=== PATIENT | male | born 1985 | race Caucasian/White ===

== ENCOUNTER 2017-04-06 00:27 | Emergency (ER) | payer OTHER ==
[2017-04-06 02:20] VITALS: BP 135/95
== END 2017-04-06 02:20 | disposition home or self-care (01) ==
LOC: ED 00:27
DX: L03.116 Cellulitis of left lower limb (principal); L03.115 Cellulitis of right lower limb; R03.0 Elevated blood-pressure reading, without diagnosis of hypertension
CPT/HCPCS: 82962; J1885; J7030

== ENCOUNTER 2017-08-16 20:20 | Emergency (ER) | payer OTHER ==
[2017-08-17 00:27] VITALS: BP 150/103
== END 2017-08-17 00:27 | disposition home or self-care (01) ==
LOC: ED 20:20
DX: K21.9 Gastro-esophageal reflux disease without esophagitis (principal)

== ENCOUNTER 2017-08-19 03:05 | Emergency (ER) | payer OTHER ==
[2017-08-19 03:49] LABS: microscopic required? NO
[2017-08-19 04:07] LABS: UA SPECIFIC GRAVITY 1.025 (1.005-1.035); urine erythrocyte NEGATIVE (NEGATIVE)
[2017-08-19 05:46] LABS: AMPHETAMINE QUAL UR POSITIVE (NEG <=1000)
[2017-08-19 06:00] VITALS: BP 117/71
== END 2017-08-19 06:00 | disposition home or self-care (01) ==
LOC: ED 03:05
PROVIDERS: Emergency Medicine
DX: Z20.2 Contact with and (suspected) exposure to infections with a predominantly sexual mode of transmission (principal); E86.0 Dehydration; K21.9 Gastro-esophageal reflux disease without esophagitis
CPT/HCPCS: 87491; 87591; J7030

== ENCOUNTER 2017-10-06 14:42 | Emergency (ER) | payer OTHER ==
[~2017-10-06] VITALS: Ht 162.6 cm; Wt 87.5 kg
[2017-10-06 15:40] LABS: BASOPHIL % 0.4 % (0-2); PLATELET COUNT 253 x10^3mcL (130-400); RED CELL DISTRIBUTION WIDTH 12.6 % (11.5-14.5)
[2017-10-06 15:48] LABS: CALCIUM 8.6 mg/dL (8.5-10.1); CHLORIDE SERUM 102 mmol/L (98-107); CREATININE SERUM 1.1 mg/dL (0.7-1.3); GFR1 > 60 mL/min; GLUCOSE SERUM 96 mg/dL (74-106); SODIUM SERUM 139 mmol/L (136-145)
[2017-10-06 15:53] LABS: ALBUMIN 3.5 g/dL (3.4-5.0); ALKALINE PHOSPHATASE 100 U/L (46-116); ALT/SGPT 30 U/L (16-63); AST/SGOT 15 U/L (15-37); BILIRUBIN TOTAL 1.2 mg/dL (0.20-1.00); LIPASE 82 IU/L (73-393); TOTAL PROTEIN, SERUM 7.8 g/dL (6.4-8.2)
[2017-10-06 16:31] VITALS: BP 126/83
[2017-10-07] MEDS ORDERED: NORCO1 TA2 PO (10:06)
== END 2017-10-06 16:32 | disposition home or self-care (01) ==
LOC: ED 14:42
PROVIDERS: Emergency Medicine
DX: K80.50 Calculus of bile duct without cholangitis or cholecystitis without obstruction (principal); Z88.8 Allergy status to other drugs, medicaments and biological substances
CPT/HCPCS: J1885; J2550; J7030; Q0092

== ENCOUNTER 2017-10-07 07:30 | Inpatient (IN) | payer OTHER ==
[~2017-10-07] VITALS: Ht 170.2 cm; Wt 91.2 kg
[2017-10-07 08:40] LABS: BASOPHIL % 0.1 % (0-2); PLATELET COUNT 258 x10^3mcL (130-400); RED CELL DISTRIBUTION WIDTH 12.8 % (11.5-14.5)
[2017-10-07 08:49] LABS: CARBON DIOXIDE 32.9 mmol/L (21-32); CHLORIDE SERUM 102 mmol/L (98-107); CREATININE SERUM 1.2 mg/dL (0.7-1.3); GFR1 > 60 mL/min; GLUCOSE SERUM 114 mg/dL (74-106); SODIUM SERUM 139 mmol/L (136-145)
[2017-10-07 08:53] LABS: ALBUMIN 3.6 g/dL (3.4-5.0); ALKALINE PHOSPHATASE 92 U/L (46-116); ALT/SGPT 32 U/L (16-63); AST/SGOT 29 U/L (15-37); BILIRUBIN TOTAL 1.09 mg/dL (0.20-1.00); LIPASE 72 IU/L (73-393); TOTAL PROTEIN, SERUM 7.9 g/dL (6.4-8.2)
[2017-10-07 08:55] LABS: AMYLASE 20 U/L (25-115)
[2017-10-07] MEDS ORDERED: NORCO1 TA2 PO (10:06)
[2017-10-07 10:18] LABS: CHOLESTEROL/HDL RATIO 2.7; MAGNESIUM 2.2 mg/dL (1.8-2.4)
[2017-10-07 10:38] LABS: FREE T4 1.06 ng/dL (0.76-1.46); FREE THYROXINE INDEX 2.7 ug/dL (1.4-4.5); T4(THYROXINE) 8.2 ug/dL (4.7-13.3)
[2017-10-07 10:40] LABS: T3 TOTAL 1.26 ng/mL
[2017-10-07 11:49] VITALS: BP 144/102
[2017-10-07 13:05] VITALS: BP 121/74
[2017-10-07 13:19] VITALS: BP 128/93
[2017-10-07 15:27] LABS: microscopic required? NO
[2017-10-07 15:33] LABS: UA SPECIFIC GRAVITY >=1.030 (1.005-1.035); urine erythrocyte NEGATIVE (NEGATIVE)
[2017-10-07 15:42] LABS: AMPHETAMINE QUAL UR POSITIVE (NEG <=1000)
[2017-10-07 17:41] VITALS: BP 129/91
== END 2017-10-07 18:50 | disposition left against medical advice (07) | DRG 247 ==
LOC: ED 07:30 → DU 09:29
PROVIDERS: Emergency Medicine; ADMIT Family Medicine
DX: K56.609 Unspecified intestinal obstruction, unspecified as to partial versus complete obstruction (principal); K21.9 Gastro-esophageal reflux disease without esophagitis; Z88.3 Allergy status to other anti-infective agents; K80.20 Calculus of gallbladder without cholecystitis without obstruction; K56.7 Ileus, unspecified
CPT/HCPCS: 83880; 84439; J1885; J2250; J2405; J3010; J3490; J7030; Q0092

== ENCOUNTER 2017-10-07 20:59 | Inpatient (IN) | payer OTHER ==
[~2017-10-07] VITALS: Ht 170.2 cm; Wt 90.5 kg
[~2017-10-07 20:59] MED LIST: NORCO1 TA2 PO
[2017-10-07 23:11] VITALS: BP 146/108
[2017-10-07 23:14] LABS: MAGNESIUM 1.8 mg/dL (1.8-2.4); PHOSPHOROUS 3.3 mg/dL (2.5-4.9)
[2017-10-07 23:18] LABS: CHOLESTEROL/HDL RATIO 2.8
[2017-10-07 23:22] LABS: FREE T4 1.06 ng/dL (0.76-1.46); FREE THYROXINE INDEX 2.1 ug/dL (1.4-4.5); T4(THYROXINE) 6.2 ug/dL (4.7-13.3)
[2017-10-07 23:33] LABS: T3 TOTAL 1.05 ng/mL
[2017-10-07 23:37] LABS: UA SPECIFIC GRAVITY 1.025 (1.005-1.035); microscopic required? YES; urine erythrocyte NEGATIVE (NEGATIVE)
[2017-10-08 00:07] LABS: AMPHETAMINE QUAL UR POSITIVE (NEG <=1000)
[2017-10-08 05:36] VITALS: BP 134/89
[2017-10-08 06:10] LABS: BASOPHIL % 0.4 % (0-2); PLATELET COUNT 229 x10^3mcL (130-400); RED CELL DISTRIBUTION WIDTH 12.4 % (11.5-14.5)
[2017-10-08 06:19] LABS: CALCIUM 7.9 mg/dL (8.5-10.1); CARBON DIOXIDE 28.3 mmol/L (21-32); CHLORIDE SERUM 105 mmol/L (98-107); GFR1 > 60 mL/min; GLUCOSE SERUM 97 mg/dL (74-106); POTASSIUM SERUM 3.9 mmol/L (3.5-5.1); SODIUM SERUM 142 mmol/L (136-145)
[2017-10-08 08:54] VITALS: BP 126/90
[2017-10-08 17:19] VITALS: BP 127/91
[2017-10-08 21:04] VITALS: BP 116/76
[2017-10-09 05:43] VITALS: BP 126/89
[2017-10-09 07:21] LABS: BASOPHIL % 0.3 % (0-2); CALCIUM 8.1 mg/dL (8.5-10.1); CHLORIDE SERUM 104 mmol/L (98-107); CREATININE SERUM 0.9 mg/dL (0.7-1.3); GFR1 > 60 mL/min; GLUCOSE SERUM 82 mg/dL (74-106); PLATELET COUNT 251 x10^3mcL (130-400); POTASSIUM SERUM 3.7 mmol/L (3.5-5.1); RED CELL DISTRIBUTION WIDTH 12.3 % (11.5-14.5); SODIUM SERUM 138 mmol/L (136-145)
[2017-10-09 09:07] VITALS: BP 127/84
[2017-10-09 16:58] VITALS: BP 129/85
[2017-10-09 21:11] VITALS: BP 140/95
[2017-10-10 04:59] VITALS: BP 117/85
[2017-10-10 07:00] LABS: BASOPHIL % 0.4 % (0-2); PLATELET COUNT 274 x10^3mcL (130-400); RED CELL DISTRIBUTION WIDTH 12.2 % (11.5-14.5)
[2017-10-10 07:02] LABS: CALCIUM 8.1 mg/dL (8.5-10.1); CARBON DIOXIDE 27.4 mmol/L (21-32); CHLORIDE SERUM 104 mmol/L (98-107); CREATININE SERUM 0.8 mg/dL (0.7-1.3); GFR1 > 60 mL/min; GLUCOSE SERUM 90 mg/dL (74-106); MAGNESIUM 2.1 mg/dL (1.8-2.4); POTASSIUM SERUM 3.8 mmol/L (3.5-5.1); SODIUM SERUM 139 mmol/L (136-145)
[2017-10-10 10:03] VITALS: BP 149/96
[2017-10-10 17:30] VITALS: BP 134/92
[2017-10-10 21:25] VITALS: BP 155/92
[2017-10-11 06:05] VITALS: BP 120/77
[2017-10-11 06:46] LABS: BASOPHIL % 0.4 % (0-2); PLATELET COUNT 324 x10^3mcL (130-400); RED CELL DISTRIBUTION WIDTH 12.1 % (11.5-14.5)
[2017-10-11 07:02] LABS: CALCIUM 8.1 mg/dL (8.5-10.1); CHLORIDE SERUM 104 mmol/L (98-107); CREATININE SERUM 0.7 mg/dL (0.7-1.3); GFR1 > 60 mL/min; GLUCOSE SERUM 76 mg/dL (74-106); POTASSIUM SERUM 3.7 mmol/L (3.5-5.1); SODIUM SERUM 137 mmol/L (136-145)
[2017-10-11 09:14] VITALS: BP 130/91
[2017-10-11 16:19] VITALS: BP 149/96
[2017-10-11 21:19] VITALS: BP 135/91
[2017-10-12 05:39] VITALS: BP 129/75
[2017-10-12 09:30] VITALS: BP 145/89
[2017-10-12] MEDS ORDERED: COL100 PO (09:37)
[2017-10-12 12:15] VITALS: BP 145/89
== END 2017-10-12 12:57 | disposition home or self-care (01) | DRG 247 ==
LOC: ED 20:59 → DU 21:53 → MU 21:53 → DU 23:03 → MU 10-08 17:42
PROVIDERS: ADMIT Family Medicine
DX: K56.609 Unspecified intestinal obstruction, unspecified as to partial versus complete obstruction (principal); N17.0 Acute kidney failure with tubular necrosis; K56.7 Ileus, unspecified; F15.10 Other stimulant abuse, uncomplicated; K80.20 Calculus of gallbladder without cholecystitis without obstruction; R80.9 Proteinuria, unspecified; Z68.31 Body mass index [BMI] 31.0-31.9, adult; F17.210 Nicotine dependence, cigarettes, uncomplicated
CPT/HCPCS: 83880; 84439; J1885; J2270; J2405; J2765; J7030; Q0092; Q9967

== ENCOUNTER 2017-11-18 22:50 | Emergency (ER) | payer OTHER ==
[~2017-11-18] VITALS: Ht 160 cm; Wt 83.9 kg
[~2017-11-18 22:50] MED LIST changes: +COL100 PO
[2017-11-18 23:03] VITALS: Ht 160 cm; Wt 83.9 kg
[2017-11-19 00:45] VITALS: BP 165/98
== END 2017-11-19 00:45 | disposition home or self-care (01) ==
LOC: ED 22:50
DX: J06.9 Acute upper respiratory infection, unspecified (principal); Z91.041 Radiographic dye allergy status

== ENCOUNTER 2018-07-06 15:33 | Emergency (ER) | payer SELFPAY ==
[~2018-07-06] VITALS: Ht 170.2 cm; Wt 86.6 kg
[2018-07-06 15:51] VITALS: Ht 170.2 cm; Wt 86.6 kg
[2018-07-06 19:47] VITALS: BP 133/99
== END 2018-07-06 16:13 | disposition home or self-care (01) ==
LOC: ED 15:33
DX: M54.6 Pain in thoracic spine (principal); Z91.041 Radiographic dye allergy status
CPT/HCPCS: 72072; Q0092; Q0162

== ENCOUNTER 2019-04-03 18:20 | Emergency (ER) | payer OTHER ==
[2019-04-03 18:45] VITALS: Ht 170.2 cm
[2019-04-03 21:19] VITALS: BP 149/101
== END 2019-04-03 21:19 | disposition home or self-care (01) ==
LOC: ED 18:20
DX: Z11.3 Encounter for screening for infections with a predominantly sexual mode of transmission (principal); K21.9 Gastro-esophageal reflux disease without esophagitis; F17.210 Nicotine dependence, cigarettes, uncomplicated; Z91.041 Radiographic dye allergy status
CPT/HCPCS: 87491; 87591

== ENCOUNTER 2019-05-13 04:47 | Inpatient (IN) | payer OTHER ==
[~2019-05-13] VITALS: Ht 170.2 cm; Wt 91.2 kg
[2019-05-13 04:50] VITALS: Ht 170.2 cm; Wt 91.2 kg
--- NOTE | 2019-05-13 05:00 | NUR ---
EKG IN PROGRESS
--- NOTE | 2019-05-13 05:00 | NUR ---
PT C/O SHARP NONRADIATING CHEST PAIN X1 HR WITH +DIZZINESS AND SOB. PT STS 5 EPISODES OF VOMITING. PT STS HE WAS SLEEPING AT THE TIME AND THE PAIN WOKE HIM UP PT STS "NEVER FELT THIS BEFORE" -LOC PT STS "I HAVE BEEN STRESSED LATELY ABOUT EVERYTHING" PT STS HX ANXIETY AND EPIGASTRIC PAIN PT AAOX4 TACYPNEIC, RESPS E/U SPEAKING FULL CLEAR SENTENCES PT APPEARS ANXIOUS +N -DIZZINESS AT THIS TIME PT STS 10/10 PAIN PT GOWNED PLACED ON FULL CM NSR
--- NOTE | 2019-05-13 05:01 | NUR ---
PT DENIES ANY RECENT DRUG OR ETOH USE
--- NOTE | 2019-05-13 05:13 | NUR ---
MOM AT BEDSIDE, PT AWAITING MSE
--- NOTE | 2019-05-13 05:27 | NUR ---
MD SPENCE AT BEDSIDE
--- NOTE | 2019-05-13 05:27 | NUR ---
PT ADMITS TO USING METH X1 DAY AGO
--- NOTE | 2019-05-13 05:34 | NUR ---
PT GIVEN URINAL AT BEDSIDE AND INSTRUCTED TO PROVIDE URINE SPECIMEN CORTEZ
--- NOTE | 2019-05-13 05:52 | NUR ---
PT REMINDED TO PROVIDE URINE SPECIMEN PER MD SPENCE VERBAL ORDERS DO NOT ADMIN ATIVAN UNTIL URINE SPECIMEN PROVIDED. PT MADE AWARE. MOM AT BEDSIDE
--- NOTE | 2019-05-13 05:59 | NUR ---
PT APPEARS ANXIOUS PT REMINDED TO PROVIDE URINE SPECIMEN RESPS E/U MOM AT BEDSIDE CALL LIGHT WITHIN REACH
--- NOTE | 2019-05-13 06:12 | NUR ---
MD FAIR AT BEDSIDE DISCUSSING PLAN OF CARE
--- NOTE | 2019-05-13 06:12 | NUR ---
MD FAIR MADE AWARE OF PT BP
[2019-05-13 06:43] LABS: BASOPHIL % 0.3 % (0-2); PLATELET COUNT 288 x10^3mcL (130-400)
--- NOTE | 2019-05-13 06:44 | NUR ---
PT C/O 10/10 CHEST PAIN, NSR ON CM, SKIN PINK DRY AND WARM, RESPS E/U PT IN NAD AT THIS TIME, MD FAIR MADE AWARE OF PT PAIN LEVEL AND BP MOM AT BEDSIDE
--- NOTE | 2019-05-13 06:54 | NUR ---
PT STS "I SEE DOUBLE" MD FAIR MADE AWARE PER MD FAIR VERBAL ORDERS OKAY TO GIVEN ATIVAN NOW
--- NOTE | 2019-05-13 07:10 | NUR ---
REPORT GIVEN TO KEE VALADEZ RN WHO IS RESUMING CARE OF PT AT THIS TIME
[2019-05-13 07:13] LABS: ALBUMIN 3.9 g/dL (3.4-5.0); ALKALINE PHOSPHATASE 107 U/L (46-116); ALT/SGPT 24 U/L (16-63); AST/SGOT 10 U/L (15-37); CALCIUM 9.4 mg/dL (8.5-10.1); CARBON DIOXIDE 25.1 mmol/L (21-32); CHLORIDE SERUM 104 mmol/L (98-107); CREATININE SERUM 1.3 mg/dL (0.7-1.3); GFR1 > 60 mL/min; GLUCOSE SERUM 127 mg/dL (74-106); POTASSIUM SERUM 3.5 mmol/L (3.5-5.1); SODIUM SERUM 140 mmol/L (136-145); TOTAL PROTEIN, SERUM 7.6 g/dL (6.4-8.2)
--- NOTE | 2019-05-13 07:34 | NUR ---
RECEIVED SLEEPING,SLEEPY POST ATIVAN,CHEST PAIN IMPROVING BETTER THAN BEFORE, CORPORATE TRAVEL AGENT IN ST NO ECTOPY,RESP. EASY BREATH SOUNDS CLEAR,NSS WIDE OPEN IN PROGRESS,,SKIN WARM AND DRY TO TOUCH, BP HIGH 189/120,ER MD AWARE
[2019-05-13 09:39] LABS: MAGNESIUM 1.8 mg/dL (1.8-2.4); PHOSPHOROUS 3.3 mg/dL (2.5-4.9)
[2019-05-13 09:44] LABS: T3 TOTAL 1.02 ng/mL
--- NOTE | 2019-05-13 09:50 | NUR ---
SLEEPING AWAKABLE FEELS BETTER, X RAY SERVICE ENGINEER SR, FOR ADMISION
[2019-05-13 10:20] VITALS: BP 140/92
--- NOTE | 2019-05-13 10:35 | NUR ---
PT ENDORSE TO ME THIS MORNING FROM [facility] VIA [employer]. BREATHIHNG EVEN AND UNLABORED ON RA, NO ACUTE RESP DISTRESS OR SOB NOTED. AA/O X4 A BIT SLEEPY/ MOTHER BY HIS SIDE. TELE 17 SR NOTED, ARISTIDES ANY CP OR PRESSURE AT THIS TIME. VOIDS FREEY, AMB. SKIN INTACT. IV TO THE RAC INTACT AND PATENT/ NS INFUSING AT 100ML/HR, NO REDNESS OR SWELLING NOTED. VS: 140/92, HR 85, TEMP 98.1, 98 RA, RESP 16, DENIES ANY DISCOMFORT OR CP AT THIS TIME. WILL CONTINUE TO MONITOR.
[2019-05-13 11:35] LABS: FREE T4 0.78 ng/dL (0.76-1.46); FREE THYROXINE INDEX 1.9 ug/dL (1.4-4.5); T4(THYROXINE) 5.5 ug/dL (4.7-13.3)
--- NOTE | 2019-05-13 14:25 | NUR ---
PT UP AMB THE HALLS X4, DENIES ANY CP OR PRESSURE. WILL CONTINUE TO MONITOR.
[2019-05-13 17:20] VITALS: BP 152/107
--- NOTE | 2019-05-13 17:45 | NUR ---
PT TOLERATED 100% OF HIS DINNER/ NO N/V NOTED, DENIES ANY CP OR PRESSURE, FAMILY AT BEDSIDE. WILL CONTINUE TO MONITOR.
--- NOTE | 2019-05-13 18:28 | NUR ---
NO ACUTE CHANGES AT THIS TIME, NO ACUTE RESP DISTRESS OR SOB NOTED. DENIES ANY CP OR PRESSURE. IV TO THE RAC INTACT AND PATENT INFUSING AT 100ML/HR, NO REDNESS OR SWELLING NOTED. WILL ENDORSE TO INCOMING RN.
[2019-05-13 18:35] LABS: microscopic required? NO
[2019-05-13 18:39] LABS: UA SPECIFIC GRAVITY 1.015 (1.005-1.035); urine erythrocyte NEGATIVE (NEGATIVE)
[2019-05-13 18:48] LABS: AMPHETAMINE QUAL UR POSITIVE (See below)
--- NOTE | 2019-05-13 19:29 | NUR ---
PT IS CALM AND COOPERATIVE WITH NURSING CARE. PT DENIES LIVINGSTON OR DIZZINESS AT THIS TIME. PT IS AWAKE AND ORIENTED X4. PT ON TELE #17 SHOWING NSR ON THE MONITOR. PT DENIES CP OR PRESSURE AT THIS TIME. PT HAS PALPABLE PULSES BILAT ALL EXTREMITIES. NO SIGNS OF EDEMA. PT HAS CLEAR LUNG SOUNDS. PT DENIES SOB. RESPIRATIONS EVEN AND UNLABORED ON ROOM AIR. PT HAS ACTIVE BOWEL SOUNDS. PT ABD SOFT, AND NONTENDER TO TOUCH. PT DENIES ABD PAIN AND N/V AT THIS TIME. PT VOIDS FREELY ON OWN. PT AMBULATORY ON OWN. PT SKIN CDI. IV FLUIDS NS RUNNING AT 100 ML/HR TO RAC. PT DENIES PAIN OR DISCOMFORT AT THIS TIME. NO SIGNS OF DISTRESS. WILL ENDORSE TO DAY NURSE.
[2019-05-13 20:44] VITALS: BP 155/104
--- NOTE | 2019-05-13 20:51 | NUR ---
PT BP 155/104 HR 93, DR. CONROY NOTIFIED AT THIS TIME.
[2019-05-14 02:00] VITALS: BP 154/105
--- NOTE | 2019-05-14 02:02 | NUR ---
PT REMAINS IN BED AT THISTIME RESTING IN BED WITH EYES CLOSED. NO SIGNS OF DISTRESS. WILL CONTINUE TO MONITOR.
--- NOTE | 2019-05-14 04:00 | NUR ---
PT REMAINS IN BED AT THIS TIME RESTING WITH EYES CLOSED. NO SIGNS OF DISTRESS. WILL CONTINUE TO MONITOR.
--- NOTE | 2019-05-14 05:15 | NUR ---
PT C/O CHEST PAIN 07/16. PT PLACED ON 2L O2 NC. PT REMAINS CALM AND COOPERATIVE. PT REMAINS LYING IN BED AT THIS TIME. WILL CONTINUE TO MONITOR.
[2019-05-14 05:27] VITALS: BP 128/97
--- NOTE | 2019-05-14 05:45 | NUR ---
PT STILL C/O 07/16 PAIN. PRN MORPHINE 2 MG GIVEN ORDERED IVP. PT STILL REMAINS IN BED CALM. NO SIGNS OF IMMEDIATE DISTRESS. WILL CONTINUE TO MONITOR.
--- NOTE | 2019-05-14 06:13 | NUR ---
PT STATES PAIN IS "BETTER" AND TOLERABLE AT THIS TIME. NO SIGNS OF DISTRESS. WILL CONTINUE TO MONITOR.
--- NOTE | 2019-05-14 06:32 | NUR ---
PT IS CALM AND COOPERATIVE WITH NURSING CARE. PT SLEPT THROUGHOUT THE EVENING. ALL PT NEEDS MET. NO SIGNS OF DISTRESS. WILL ENDORSE TO DAY NURSE.
[2019-05-14 06:36] LABS: BASOPHIL % 0.3 % (0-2); PLATELET COUNT 257 x10^3mcL (130-400)
[2019-05-14 06:58] LABS: CALCIUM 8.5 mg/dL (8.5-10.1); CARBON DIOXIDE 29.6 mmol/L (21-32); CHLORIDE SERUM 104 mmol/L (98-107); GFR1 > 60 mL/min; GLUCOSE SERUM 115 mg/dL (74-106); PHOSPHOROUS 3.5 mg/dL (2.5-4.9); SODIUM SERUM 140 mmol/L (136-145)
--- NOTE | 2019-05-14 07:19 | NUR ---
PT LAYING IN BED RESTING. BREATHING EVEN AND UNLABORED ON RA, NO ACUTE RESP DISTRESS OR SOB NOTED. AA/O X4. TELE 17 SR NOTED, HR 84, DENIES ANY CP OR PRESSURE. VOIDS FREELY, AMB. FAMILY AT BEDSIDE. IV TO THE RAC INTACT AND PATENT NS INFUSING AT 100ML/HR, NO REDNESS OR SWELLING NOTED. CALL LIGHT IN REACH. BED IN LOW POSITION. WILL CONTINUE TO MONITOR.
[2019-05-14 08:21] VITALS: BP 140/100
--- NOTE | 2019-05-14 09:46 | NUR ---
PT C/O OF ABD PAIN/MEDICATED PER EMAR. EDUCATED PT NEEDS TO TRY TO PASS GAS OR WALK, PT STATED WILL TRY TO AMB WHEN PAIN GETS BETTER. WILL CONTINUE TO MONITOR.
[2019-05-14 12:41] VITALS: BP 147/101
--- NOTE | 2019-05-14 14:56 | NUR ---
METAMUCIL GIVEN FOR ABD DISCOMFORT. WILL CONTINUE TO MONITOR
[2019-05-14 16:25] VITALS: BP 150/98
--- NOTE | 2019-05-14 17:00 | NUR ---
DR. RASMUSSEN AT BEDSIDE.
--- NOTE | 2019-05-14 18:44 | NUR ---
NO ACUTE CHANGES AT THIS TIME. NO ACUTE RESP DISTRESS OR SOB NOTED. NOW MEDSURG/ DENIES ANY CP OR PRESSURE. WILL ENDORSE TO INCOMING RN.
--- NOTE | 2019-05-14 19:23 | NUR ---
RECEIVED PT FROM PREVIOUS SHIFT. MEDSURG. AAO. DROWSY BUT AROUSABLE. ABLE TO MAKE NEEDS KNOWN. NO S/S ACUTE DISTRESS. BREATHING E/U. ABD FIRM/DISTENDED, BS ACTIVE X4 QUADS, PT HAD 1X LARGE LOOSE DARK BM. PT AMBULATORY. ENCOUAGED PT TO AMBULATE TO ASSIST WITH GAS AND ABD DISCOMFORT, PT VERBALIZED UNDERSTANDING. IV SITE CDI, NO ERYTHEMA OR SWELLING. CALL LIGHT WITHIN REACH. SAFETY MEASURES IN PLACE. WILL CONTINUE TO MONITOR.
--- NOTE | 2019-05-14 19:47 | NUR ---
PT MEDICATED PER EMAR FOR ABD PAIN, PT UNABLE TO RATE ON SCALE.
[2019-05-14 21:57] VITALS: BP 157/110
--- NOTE | 2019-05-14 23:34 | NUR ---
PT HAD EPISODE OF BM INCONTINENCE. PT CLEANED, LINENS CHANGED. PT TOLERATED WELL. PT BACK IN BED. NO S/S ACUTE DISTRESS. EYES CLOSED. SAFETY MEASURES IN PLACE. CALL LIGHT WITHIN REACH. WILL CONTINUE TO MONITOR.
[2019-05-15 04:57] VITALS: BP 149/95
[2019-05-15 06:42] LABS: CALCIUM 8.9 mg/dL (8.5-10.1); CARBON DIOXIDE 21.2 mmol/L (21-32); CHLORIDE SERUM 102 mmol/L (98-107); CREATININE SERUM 0.9 mg/dL (0.7-1.3); GFR1 > 60 mL/min; GLUCOSE SERUM 98 mg/dL (74-106); POTASSIUM SERUM 3.4 mmol/L (3.5-5.1); SODIUM SERUM 136 mmol/L (136-145)
[2019-05-15 06:43] LABS: BASOPHIL % 0.1 % (0-2); PLATELET COUNT 245 x10^3mcL (130-400); RED CELL DISTRIBUTION WIDTH 12.9 % (11.5-14.5)
--- NOTE | 2019-05-15 06:50 | NUR ---
PT HAD RESTFUL NIGHT. NO CHANGES OVERNIGHT. ALL NEEDS MET AND ATTENDED TO. NO S/S ACUTE DISTRESS. BREATHING E/U ON RA. REMAINS DROWSY BUT EASILY AROUSABLE. NO SIGNS OF PAIN OBSERVED. SAFETY MEASURES IN PLACE. CALL LIGHT WITHIN REACH. WILL ENDORSE CARE TO ONCOMING SHIFT.
--- NOTE | 2019-05-15 07:15 | NUR ---
RECEIVED PT IN BED, AXOX4, DROWSY, FAMILY AT BEDSIDE, VERBAL, RWANDAN, CALM AND COPPERATIVE WITH POC, DENIED PAIN/CP/[place]IVINGST[place]/N/V/DIZZINESS, NO REDNESS/DRAINAGE, LUNGS CTA, AT RA, CXR (-), CHEST RISE SYMMETRICALLY, MEDSURG, PALP PULSES, NO EDEMA, ABD FLAT AND NON-TENDER TO TOUCH, AMBULATORY, CONTINENT, ABLE TO MOVE ALL EXTREMITIES, SKIN D/C/I, IV TP (R) AC PATENT AND INFUSING WELL, ALL NEEDS MET, RAILS X 2, CALL LIGHT IN REACH, BED AT LOW POSITION, CONTINUE TO MONITOR
--- NOTE | 2019-05-15 07:20 | NUR ---
BEDSIDE REPORT GIVEN TO JEFFREY RN. ALL QUESTIONS AND CONCERNS ADDRESSED.
--- NOTE | 2019-05-15 08:50 | NUR ---
PT RESTIGN IN BED, RELAX AND REPORTED NO DISCOMFORT, AM MED GIVEN PER MD ORDER VIA EMAR, TAKEN WELL, NO ASE NOTED AT THIS TIME, ALL NEEDS MET, CONTINUE TO MONITOR
[2019-05-15 08:58] VITALS: BP 151/100
--- NOTE | 2019-05-15 11:49 | NUR ---
PT SLEEPING IN BED, IN NO ACUTE RESP DISTRESS, FAMILY AT BEDSIDE, QUESTION ASKED AND ANSWERED, NO FURTHER CONCERNS NEEDED WHEN ASKED, VERBALLY UNDERSTANDING, SAFETY PRECAUTION WATCHED, ALL NEEDS MET AT THIS TIME, CONTINUE TO MONITOR AND F/U
--- NOTE | 2019-05-15 13:26 | NUR ---
I HAVE REVIEWED THE DATA COLLECTION BY ABELARDO RING (NAME):ROLAND ZAVALETA ENTERED ON (DATE/TIME):05/15/19 @ 4391 I CONCUR WITH THE DATA AND ANY EXCEPTIONS OR COMMENTS ARE LISTED BELOW:
[2019-05-15 14:25] VITALS: BP 151/100
--- NOTE | 2019-05-15 14:29 | NUR ---
PT IN BED, AXOX4, IN NO ACUTE RESP DISTRESS, FAMILY AT BEDSIDE, ICE PTCHER WATER REPLACED, ENCOURAGED TO DRINK FLUID, TAKEN WELL, ALL NEEDS MET, SAFETY PRECAUTION FOLLOWED, CONTINUE TO MONITOR
--- NOTE | 2019-05-15 14:30 | NUR ---
PT PULLED OUT IV TO RIGHT AC, DECIDED TO LEAVE AMA, DUMP ATTENDANT SELWYN AWARE, AGREE FOR PT TO LEAVE AMA
--- NOTE | 2019-05-15 14:35 | NUR ---
PT PULLED IV OUT AND DROPPED ON FLOOR, IV CATH CHECKED, IV CATH TIP INTACT, INDIAN NANNY AND CHARGE NURSE AWARE
--- NOTE | 2019-05-15 14:37 | NUR ---
PT AWARE OF RISK OF LEAVING AMA, AGREED TO STAY UNTIL CLEAR BY THE MD OR RUBBER MILL TENDER, FAMILY AT BEDSIDE, RUBBER MILL TENDER SELWYN AWARE
--- NOTE | 2019-05-15 15:09 | NUR ---
IV INSERTED TO (L) FA, PATENT AND INSUDING WELL, PT AND FAMILY AWARE, CONTINUE TO MONITOR
--- NOTE | 2019-05-15 16:43 | NUR ---
PT PULLED HIS IV OUT AGAIN.WANT TO LEAVE AMA.EXPLAINED TO PT THE RISK OF LEAVNG AMA.PT VERBALIZES UNDERSTANDING.SIGNED AMA FORM.WENT DOWN AMBULATORY ACCOMPANED BY GIRLFRIEND.
== END 2019-05-15 16:43 | disposition left against medical advice (07) | DRG 199 ==
LOC: ED 04:47 → DU 08:35 → MU 05-14 19:56
PROVIDERS: Emergency Medicine; Internal Medicine; ADMIT Internal Medicine
DX: I16.0 Hypertensive urgency (principal); N17.0 Acute kidney failure with tubular necrosis; K21.9 Gastro-esophageal reflux disease without esophagitis; F15.10 Other stimulant abuse, uncomplicated; F17.210 Nicotine dependence, cigarettes, uncomplicated; F10.10 Alcohol abuse, uncomplicated; Z53.21 Procedure and treatment not carried out due to patient leaving prior to being seen by health care provider; Z60.2 Problems related to living alone; Y90.9 Presence of alcohol in blood, level not specified; Z91.041 Radiographic dye allergy status; Z83.3 Family history of diabetes mellitus; Z71.51 Drug abuse counseling and surveillance of drug abuser; Z71.6 Tobacco abuse counseling
CPT/HCPCS: 83880; 84439; 85378; G0378; J0360; J1885; J2060; J2270; J7030; Q0092

== ENCOUNTER 2020-01-26 15:28 | Emergency (ER) | payer OTHER ==
[~2020-01-26] VITALS: Ht 170.2 cm; Wt 91.6 kg
[2020-01-26 15:44] VITALS: Ht 170.2 cm; Wt 91.6 kg
[2020-01-26 17:32] LABS: BASOPHIL % 0.1 % (0-2); PLATELET COUNT 248 x10^3mcL (130-400); RED CELL DISTRIBUTION WIDTH 12.4 % (11.5-14.5)
[2020-01-26 17:46] LABS: CALCIUM 8.5 mg/dL (8.5-10.1); CARBON DIOXIDE 30.3 mmol/L (21-32); CHLORIDE SERUM 106 mmol/L (98-107); CREATININE SERUM 1.1 mg/dL (0.7-1.3); GFR1 > 60 mL/min; GLUCOSE SERUM 94 mg/dL (74-106); POTASSIUM SERUM 4.1 mmol/L (3.5-5.1); SODIUM SERUM 140 mmol/L (136-145)
[2020-01-26 17:53] LABS: ALBUMIN 3.1 g/dL (3.4-5.0); ALKALINE PHOSPHATASE 87 U/L (46-116); ALT/SGPT 31 U/L (16-63); AST/SGOT 16 U/L (15-37); BILIRUBIN TOTAL 0.73 mg/dL (0.20-1.00); LIPASE 77 IU/L (73-393); TOTAL PROTEIN, SERUM 6.9 g/dL (6.4-8.2)
[2020-01-26 18:33] VITALS: BP 140/102
== END 2020-01-26 18:33 | disposition home or self-care (01) ==
LOC: ED 15:28
PROVIDERS: Emergency Medicine
DX: R10.13 Epigastric pain (principal); R14.0 Abdominal distension (gaseous); K21.9 Gastro-esophageal reflux disease without esophagitis; R03.0 Elevated blood-pressure reading, without diagnosis of hypertension; Z87.19 Personal history of other diseases of the digestive system
CPT/HCPCS: 36415; J7030

== ENCOUNTER 2020-04-29 00:44 | Emergency (ER) | payer OTHER ==
[~2020-04-29] VITALS: Ht 170.2 cm; Wt 88.5 kg
[2020-04-29 00:55] VITALS: Ht 170.2 cm; Wt 88.5 kg
[2020-04-29 02:58] LABS: BASOPHIL % 0.5 % (0-2); PLATELET COUNT 270 x10^3mcL (130-400); RED CELL DISTRIBUTION WIDTH 12.2 % (11.5-14.5)
[2020-04-29 03:00] LABS: CALCIUM 7.8 mg/dL (8.5-10.1); CARBON DIOXIDE 27.4 mmol/L (21-32); CHLORIDE SERUM 105 mmol/L (98-107); CREATININE SERUM 1.1 mg/dL (0.7-1.3); GFR1 > 60 mL/min; GLUCOSE SERUM 116 mg/dL (74-106); POTASSIUM SERUM 3.9 mmol/L (3.5-5.1); SODIUM SERUM 138 mmol/L (136-145)
[2020-04-29 03:11] LABS: ALBUMIN 3.6 g/dL (3.4-5.0); ALKALINE PHOSPHATASE 109 U/L (46-116); ALT/SGPT 29 U/L (16-63); AST/SGOT 18 U/L (15-37); BILIRUBIN TOTAL 1.09 mg/dL (0.20-1.00); LIPASE 108 IU/L (73-393); TOTAL PROTEIN, SERUM 6.8 g/dL (6.4-8.2)
[2020-04-29 03:43] VITALS: BP 163/106
== END 2020-04-29 03:43 | disposition home or self-care (01) ==
LOC: ED 00:44
PROVIDERS: Emergency Medicine
DX: K80.20 Calculus of gallbladder without cholecystitis without obstruction (principal); K21.9 Gastro-esophageal reflux disease without esophagitis; Z91.041 Radiographic dye allergy status
CPT/HCPCS: J1885; J2405; J3010; J7030; Q0092